=== PATIENT | female | born 1980 | race Caucasian/White ===

== ENCOUNTER 2024-02-02 08:34 | Outpatient (OUT) | payer OTHER, SELFPAY ==
--- NOTE | 2024-02-02 | XR_ITS ---
The [address] [address] Patient Name: CAMILLA CARDENAS MRN: [id number] date: 1980 Sex: F Assigned Patient Location: Current Patient Location: Accession/Order Number: [id number] Exam Date: 02/02/2024 08:42 Report Date: 02/03/2024 04:54 At the request of: AGNIESZKA NAVARRO Procedure: XR foot LT min 3V PROCEDURE: XR foot LT min 3V HISTORY: LEFT FOOT PAIN ; pain distal third-fourth metatarsophalangeal joint region (dropped heavy chair on left foot one year ago) COMPARISON: None. FINDINGS: BONES:Contour deformity and articular surface irregularity of the head of the third metatarsal. No acute fracture or dislocation. No significant joint space narrowing. SOFT TISSUES:No visible soft tissue swelling. EFFUSION:None visible. OTHER: Negative. XR/XR foot LT min 3V IMPRESSION: 1. Abnormal appearance of the head of the third metatarsal and involving the articular surface favoring sequela of remote trauma. Electronically authenticated by: BRITNEY GAXIOLA Date: 02/03/2024 04:54
== END 2024-02-02 08:35 | disposition home or self-care (01) ==
PROVIDERS: PCP Nurse Practitioner Family; Visit Provider Podiatrist Foot & Ankle Surgery
DX: M25.572 Pain in left ankle and joints of left foot (principal)
CPT/HCPCS: 73630